=== PATIENT | female | born 1960 | race Caucasian/White ===

== ENCOUNTER 2022-03-25 11:10 | Outpatient (REF) | payer MEDICARE, OTHER, SELFPAY ==
[2022-03-25 12:13] LABS: Estimated Average Glucose 298 mg/dL
[2022-03-25 12:39] LABS: Anion Gap 16 (12-20); Blood Urea Nitrogen 33 mg/dL (9-16); Calcium 10.3 mg/dL (8.4-10.2); Carbon Dioxide 24 mmol/L (22-29); Chloride 101 mmol/L (96-108); Estimated Glomerular Filt Rate 27; Glucose Random 184 mg/dL (60-115); Potassium 4.1 mmol/L (3.3-5.1); Sodium 137 mmol/L (135-145)
== END 2022-03-25 11:11 | disposition home or self-care (01) ==
LOC: HO.LAB 11:10
PROVIDERS: PCP Internal Medicine; Visit Provider Psychiatry & Neurology Neurology
DX: G43.709 Chronic migraine without aura, not intractable, without status migrainosus (principal); E11.9 Type 2 diabetes mellitus without complications
CPT/HCPCS: 36415; 80048; 83036

== ENCOUNTER 2025-01-31 09:16 | Outpatient (AMB) | payer MEDICARE, OTHER, SELFPAY ==
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
--- OUTSIDE RECORDS SUMMARY | 2025-01-31 10:06 | XMS_ITS | Encounter Summary ---
Author Organization [facility] Address [address] [place] [address] Care Team Providers Care Insole Doubler Name Role Phone Magnolia Dodd MD Primary Care Provider [phone] Mariajose Reza MD Primary Care Provider [phone] Mariajose Reza MD Primary Care Provider [phone] Mariajose Reza MD Unavailable [phone] Magnolia Dodd MD Unavailable Xochitl Paredes MD Primary Care Provider [phone] Xochitl Paredes MD Unavailable [phone] Sascha Escobedo MD Unavailable [phone] Cipriano Fofana MD Primary Care Provider + [phone] Quan Flores MD Unavailable [phone] Sohan Goncalves MD Unavailable [phone] Andrew Wang MD Unavailable [phone] Encounter Details Date Type Department Care Team (Late st Contact Info) Description 12/20/2020 Scanned Document [facility] [place] [address] [facility] [address] [place] [phone] Karen Millard MD [address] [place] [address] Social History Tobacco Use Types Packs/Day Years Used Date Smoking Tobacco: Never Assessed Comments Unknown Sex and Gender Information Value Date Recorded Sex Assigned at Female 06/04/2022 2:33 PM EST Legal Sex Female 1:45 PM EDT Gender Identity Female 06/04/2022 2:33 PM EST Sexual Orientation Heterosexual (straight) 06/04 2:33 PM EST documented as of this encounter Plan of Treatment Upcoming Encounters Date Type Department Care Team (Late st Contact Info) Description 02/10/2025 9:15 AM EDT Office Visit [facility] Department of Cardiology [address] [address] Sohan Goncalves MD [address] [address] 03/24/2025 12:00 PM EST Office Visit [facility] Department of Internal Medicine & Nephrology [place] 1260 [facility] [address] [place] [phone] Quan Flores MD 85 [facility] [address] [place] [address] 07/24/2025 10:00 AM EDT Office Visit [facility] DEPARTMENT OF INTERNAL MEDICINE [address] Dr. Cipriano Fofana [address] [phone] Daiana Tello, STEPHANIE [address] [address] 11/24/2025 9:30 AM EDT Office Visit [facility]rology [place] [address] [place] [phone] Sascha Escobedo MD 85 [facility] [address] [place] [address] 01/22/2026 10:00 AM EDT Office Visit [facility] DEPARTMENT OF INTERNAL MEDICINE [facility] Dr. Cipriano Fofana 1210 [facility] [address] [place] [address] Mouna Ortega, STEPHANIE 1210 [facility] [address] [place] [address] documented as of this encounter Procedures Procedure Name Priority Date/Time Associated Diagnosis Comments MRI PELVIS W W/O CONTRAST Routine 12/20/2020 documented in this encounter Results * MRI Pelvis w w/o contrast (12/20/2020) Anatomical Region Laterality Modality Pelvis Magnetic Resonan ce us Karen Millard MD IMG MRI ORDERABLES Final Resul t documented in this encounter Visit Diagnoses Not on filedocumented in this encounter Care Teams Insole Doubler Relationship Specialty Start Date End Date Magnolia Dodd MD [address] [place] [address] PCP - General 12/27/20 02/24/22 Mariajose Reza MD [address] [place] [address] PCP - General Internal Medicine 02/25/22 05/11/23 Mariajose Reza MD [address] [place] [address] PCP - General 12/26/20 Mariajose Reza MD [address] [place] [address] PCP - [facility] Medicare Patients 05/21/22 09/17/22 Magnolia Dodd MD [address] [place], [place] [id number] PCP - [facility] Medicare Patients 02/18/23 05/20/23 Xochitl Paredes MD 1 [facility] [address] [place] [address] PCP - General Internal Medicine 06/11/23 06/26/24 Xochitl Paredes MD 1 [facility] [address] [place] [address] PCP - [facility] Medicare Patients 07/20/23 Cipriano Fofana MD 1210 [facility] 107 [place] [address] PCP - General Internal Medicine 06/27/24 Sascha Escobedo MD 85 [facility] [address] [place] [address] Physician Urology 12/11/23 Quan Flores MD 85 [facility] [address] [place] [address] Nephrology 01/16/25 Sohan Goncalves MD 1260 [facility] [address] [place] [address] Cardiovascular Disease 01/16/25 Andrew Wang MD 146 [facility] [address] [place] [address] Otolaryngology 01/16/25 documented as of this encounter
--- OUTSIDE RECORDS SUMMARY | 2025-01-31 10:06 | XMS_ITS | Encounter Summary ---
Author Organization [facility] Address [address] [place] [address] Care Team Providers Care Clinical Molecular Geneticist Name Role Phone Xochitl Paredes MD Primary Care Provider [phone] Xochitl Paredes MD Unavailable [phone] Sascha Escobedo MD Unavailable [phone] Cipriano Fofana MD Primary Care Provider + [phone] PostQuan MD Unavailable [phone] Sohan Goncalves MD Unavailable [phone] Andrew Wang MD Unavailable [phone] Encounter Details Date Type Department Care Team (Late st Contact Info) Description 02/08/2024 Telephone [facility] Department of Internal Medicine & Nephrology [place] [address] [place] [address] [address] [place] [address] Quan Flores MD [address] [place] [place] [address] Social History Tobacco Use Types Packs/Day Years Used Date Smoking Tobacco: Former Cigarettes Smokeless Tobacco: Never Comments:quit approx 1979 Alcohol Use Standard Drinks/Week Comments Not Currently 0 (1 standard drink = 0.6 oz pur e alcohol) AUDIT-C Answer Date Recorded Q1: How often do you have a drink containing alcohol? Never 12/23/2022 Q2: How many drinks containi ng alcohol do you have on a typical day when you are drinking? Patient does not drink 09/05/202 3 Q3: How often do you have si x or more drinks on one occasion? Never 12/23/2022 Comments No Sex and Gender Information Value Date Recorded Sex Assigned at Female 06/04/2022 2:33 PM EST Legal Sex Female 1:45 PM EDT Gender Identity Female 06/04/2022 2:33 PM EST Sexual Orientation Heterosexual (straight) 06/04 2:33 PM EST documented as of this encounter Miscellaneous Notes * Telephone Encounter - Mouna Guerra - 02/08/2024 3:16 PM EDT Pt moved to 12pm. * Telephone Encounter - Monua Guerra - 02/08/2024 3:16 PM EDT ----- Message from Yasmeen Khoury MA sent at 02/04/2024 4:11 PM EDT ----- ----- Message ----- From: Quan Flores MD Sent: 02/04/2024 3:40 PM EDT To: Str Nephrology Clinical Staff She has been a 1045 scheduled appointment coming up in a few weeks. I like to move her out of the 1045 spot to come at 12. Thank you I know I have another patient there that time but I will spend theextra time after that to make sure that we see everybody documented in this encounter Plan of Treatment Upcoming Encounters Date Type Department Care Team (Late st Contact Info) Description 02/10/2025 9:15 AM EDT Office Visit [facility] Department of Cardiology [address] [phone] Sohan Goncalves MD [address] [address] 03/24/2025 12:00 PM EST Office Visit [facility] Department of Internal Medicine & Nephrology [place] [address] [address] [facility] [address] [place] [address] Quan Flores MD 85 [facility] [address] [place] [address] 07/24/2025 10:00 AM EDT Office Visit [facility] DEPARTMENT OF INTERNAL MEDICINE [address] [address] Cipriano Fofana [address] [phone] Daiana Tello, TRAVELING PASSENGER AGENT 1210 [facility] 107 [place] [address] 11/24/2025 9:30 AM EDT Office Visit [facility] [address] [address] Sascha Escobedo MD [address] [address] 01/22/2026 10:00 AM EDT Office Visit [facility] DEPARTMENT OF INTERNAL MEDICINE [address] Dr[address] Cipriano Fofana [address] [phone] Mouna Ortega, TRAVELING PASSENGER AGENT [address] [address] documented as of this encounter Visit Diagnoses Not on filedocumented in this encounter Care Teams Clinical Molecular Geneticist Relationship Specialty Start Date End Date Xochitl Paredes MD [address] [address] PCP - General Internal Medicine 06/11/23 06/26/24 Xochitl Paredes MD [address] [address] PCP - [facility] Medicare Patients 07/20/23 Cipriano Fofana MD 1210 [facility] [address] [place] [address] PCP - General Internal Medicine 06/27/24 Sascha Escobedo MD 85 [facility] [address] [place] [address] Physician Urology 12/11/23 Quan Flores MD 85 [facility] [address] [place] [address] Nephrology 01/16/25 oShan Goncalves MD 1260 [facility] 106 [place] [address] Cardiovascular Disease 01/16/25 Andrew Wang MD [address] [facility] [address] [place] [address] Otolaryngology 01/16/25 documented as of this encounter
--- OUTSIDE RECORDS SUMMARY | 2025-01-31 10:06 | XMS_ITS | Encounter Summary ---
Author Organization [facility] Address [address] [place] [address] Care Team Providers Care Trash Hauler Name Role Phone Magnolia Dodd MD Primary Care Provider [phone] Mariajose Reza MD Primary Care Provider [phone] Mariajose Reza MD Unavailable [phone] Magnolia Dodd MD Unavailable Xochitl Paredes MD Primary Care Provider [phone] Xochitl Paredes MD Unavailable [phone] Sascha Escobedo MD Unavailable [phone] Cipriano Fofana MD Primary Care Provider + [phone] PostQuan MD Unavailable [phone] Sohan Goncalves MD Unavailable [phone] Andrew Wang MD Unavailable [phone] Reason for Visit * Reason Comments Medication Refill Encounter Details Date Type Department Care Team (Late st Contact Info) Description 01/27/2021 Refill [facility] 85 [facility] [address] [place] [phone] Candelario Orr MD 85 [facility] [address] [place], [place] [phone] Essential (primary) hypertension Social History Tobacco Use Types Packs/Day Years Used Date Smoking Tobacco: Never Assessed Comments Unknown Sex and Gender Information Value Date Recorded Sex Assigned at Female 06/04/2022 2:33 PM EST Legal Sex Female 1:45 PM EDT Gender Identity Female 06/04/2022 2:33 PM EST Sexual Orientation Heterosexual (straight) 06/04 2:33 PM EST COVID-19 Exposure Response Date Recorded In the last month, have you been in contact with someone who was confirmed or suspected to have Coronavirus / COVID-19? No / Unsure 12/28/2020 10:44 AM EDT documented as of this encounter Plan of Treatment Upcoming Encounters Date Type Department Care Team (Late st Contact Info) Description 02/10/2025 9:15 AM EDT Office Visit [facility] Department of Cardiology [address] [address] Sohan Goncalves MD [address] [address] 03/24/2025 12:00 PM EST Office Visit [facility] Department of Internal Medicine & Nephrology [place] 1260 [facility] [address] [place] [address] Quan Flores MD 85 [facility] [address] [place] [address] 07/24/2025 10:00 AM EDT Office Visit [facility] DEPARTMENT OF INTERNAL MEDICINE [place] [address] Cipriano Fofana [address] [phone] Daiana Tello APRN 1210 [facility] 107 [place] [address] 11/24/2025 9:30 AM EDT Office Visit [facility] Urology [place] [address] [place] [phone] Sascha Escobedo MD [address] [address] 01/22/2026 10:00 AM EDT Office Visit [facility] DEPARTMENT OF INTERNAL MEDICINE [place] Dr[facility] Cipriano Fofana 1210 [facility] [address] [place] [phone] Mouna Ortega, MANUFACTURING ENGINEERING TECHNICIAN 1210 [facility] [address] [place] [address] documented as of this encounter Visit Diagnoses Diagnosis Essential (primary) hypertension Unspecified essential hypertension documented in this encounter Care Teams Trash Hauler Relationship Specialty Start Date End Date Magnolia Dodd MD [address] [place], [place] [phone] PCP - General 12/27/20 02/24/22 Mariajose Reza MD [address] [place] [address] PCP - General Internal Medicine 02/25/22 05/11/23 Mariajose Reza MD [address] [place] [address] PCP - [facility] Medicare Patients 05/21/22 09/17/22 Magnolia Dodd MD [address] [place] [address] PCP - [facility] Medicare Patients 02/18/23 05/20/23 Xochitl Paredes MD [address] [place] [address] PCP - General Internal Medicine 06/11/23 06/26/24 Xochitl Paredes MD 1 [facility] 200 [place] [address] PCP - [facility] Medicare Patients 07/20/23 Cipriano Fofana MD 1210 [facility] [address] [place] [address] PCP - General Internal Medicine 06/27/24 Sascha Escobedo MD 85 [facility] [address] [place] [address] Physician Urology 12/11/23 Quan Flores MD 85 [facility] [address] [place] [address] Nephrology 01/16/25 Sohan Goncalves MD 1260 [facility] [address] [place] [address] Cardiovascular Disease 01/16/25 Andrew Wang MD [address] [facility] [address] [place] [address] Otolaryngology 01/16/25 documented as of this encounter
--- OUTSIDE RECORDS SUMMARY | 2025-01-31 10:06 | XMS_ITS ---
Author Name [facility] Organization Unknown Results Test Name/Text Value Interpretation Date Range Source Creat SerPl-mCnc 1.59 mg/dL Above high normal 11/19/2024 0.5 - 1.05 [facility] eGFRcr SerPlBld CKD-EPI 2020 36.0 mL/min/1.73m2 Below low normal 11/19/2024 - [facility] History of Medication Use Medication Directions Dispensed Refills Start Date End Date Stat semaglutide (Ozempic, 0.25 or 0.5 MG/DOSE,) (0.25 or 0.5 mg/dose pen) prefilled pen injection INJECT 0.5 MG UNDER THE SKIN ONCE A WEEK. 01/02/2025 active traZODone (DESYREL) 50 MG tablet Take 2 tablets (100 mg total) by mouth nightly as needed for sleep. 07/18/2024 active doxazosin (CARDURA) 2 MG tablet Take 1 tablet (2 mg total) by mouth daily. 05/03/2024 active doxazosin (CARDURA) 1 MG tablet Take 1 tablet (1 mg total) by mouth nightly. 03/11/2024 5 aborted busPIRone (BUSPAR) 5 MG tablet Take 1 tablet (5 mg total) by mouth 2 (two) times a day. 03/11/2024 active OMEprazole (PriLOSEC) 40 MG capsule Take 1 capsule (40 mg total) by mouth every morning before breakfast. 02/23/2024 active cloNIDine (CATAPRES) 0.2 MG tablet Take 1 tablet (0.2 mg total) by mouth 2 (two) times a day. 01/15/2024 active semaglutide (OZEMPIC) (1 mg/dose pen) prefilled pen injection Inject 1 mg under the skin once a week. 01/11/2024 active fluticasone-salmeterol (WIXELA INHUB) 250-50 mcg/act inhaler INHALE 1 PUFF BY MOUTH EVERY MORNING 11/16/2023 active semaglutide (OZEMPIC) (0.25 or 0.5 mg/dose pen) prefilled pen injection Inject 0.5 mg under the skin once a week. 11/13/2023 active cloNIDine (CATAPRES) 0.1 MG tablet Take 1 tablet (0.1 mg total) by mouth 2 (two) times a day. 10/15/2023 active semaglutide (OZEMPIC) (0.25 or 0.5 mg/dose pen) prefilled pen injection Inject 0.25 mg under the skin once a week. 10/02/2023 active doxazosin (CARDURA) 4 MG tablet Take 1 tablet (4 mg total) by mouth nightly. 08/19/2023 active insulin lispro (HumaLOG KWIKPEN) 100 UNIT/ML prefilled pen injection Inject 5 Units under the skin 3 (three) times a day before meals. 08/07/2023 active amitriptyline (ELAVIL) 10 MG tablet TAKE 1 TABLET BY MOUTH NIGHTLY NEEDED FOR SLEEP 06/11/2023 active tirzepatide (MOUNJARO) 2.5 mg/0.5 mL pen-injector Inject 1 pen(s) (2.5 mg total) under the skin once a week. 06/11/2023 active dapagliflozin (FARXIGA) 5 mg tablet Take 1 tablet (5 mg total) by mouth every morning. 02/19/2023 active OMEprazole (PriLOSEC) 20 MG capsule Take 1 capsule (20 mg total) by mouth daily. 10/30/2022 active Wixela Inhub 250-50 MCG/ACT diskus inhaler INHALE 1 PUFF TWICE A DAY 10/30/2022 active fluticasone-salmeterol (ADVAIR) 250-50 mcg/inh diskus inhaler Inhale 1 puff 2 (two) times a day. 10/07/2022 active clobetasol (TEMOVATE) 0.05 % ointment APPLY TOPICALLY 2 (TWO) TIMES A DAY. FOR A MAXIMUM OF 2 WEEKS. 09/19/2022 4 active hydrocortisone (HYTONE) 2.5 % ointment APPLY TOPICALLY 3 TIMES A WEEK. 09/19/2022 4 active Lantus SoloStar 100 UNIT/ML prefilled pen injection INJECT 15 UNIT DAILY IN EVENING. TITRATE NEEDED FOR BLOOD SUGAR CONTROL WITH DR. SANTIAGO 08/25/2022 active valsartan (DIOVAN) 320 MG tablet Take 1 tablet (320 mg total) by mouth every morning. 07/24/2022 3 active escitalopram (LEXAPRO) 10 MG tablet TAKE 1 TABLET (10 MG TOTAL) BY MOUTH EVERY MORNING. 07/08/2022 active hydroCHLOROthiazide (HYDRODIURIL) 25 MG tablet TAKE 1 TABLET BY MOUTH EVERY DAY 07/08/2022 active OMEprazole (PriLOSEC) 20 MG capsule TAKE 1 CAPSULE BY MOUTH EVERY DAY 06/19/2022 active Alcohol Swabs (Alcohol Wipes) 70 % Pads use to give insulin and check blood sugar 03/04/2022 active metFORMIN (GLUCOPHAGE) 500 MG tablet Take 1 tablet (500 mg total) by mouth 2 (two) times a day. 02/26/2022 3 active Insulin Pen Needle (BD Pen Needle Lexie 2nd Gen) 32G X 4 MM Misc Use 4 time a day to inject insulins under skin 02/26/2022 active metFORMIN (GLUCOPHAGE) 500 MG tablet Take 1 tablet by mouth 3 (three) times a day with meals. 02/26/2022 active docusate sodium (COLACE) 100 MG capsule Take 1 capsule (100 mg total) by mouth 2 (two) times a day as needed for constipation. 06/24/2021 active gabapentin (NEURONTIN) 300 MG capsule Take 1 capsule (300 mg total) by mouth every 8 (eight) hours around the clock. 06/24/2021 active oxyCODONE (ROXICODONE) 5 MG immediate release tablet Take 1 tablet (5 mg total) by mouth every 4 (four) hours as needed for severe pain. Max Daily Amount: 30 mg 06/24/2021 active Advair Diskus 250-50 MCG/DOSE diskus inhaler Inhale 1 puff 2 (two) times a day. 05/06/2021 active Emgality 120 MG/ML injection Inject 120 mg under the skin every 28 days (4 weeks). 03/27/2021 active amitriptyline (ELAVIL) 50 MG tablet Take 50 mg by mouth nightly as needed. 03/26/2021 active losartan (COZAAR) 100 MG tablet Take 100 mg by mouth every morning. 01/28/2021 active ipratropium (ATROVENT) 0.06 % nasal spray 1 spray into each nostril every morning. 01/24/2021 active acetaminophen (TYLENOL) 500 MG tablet Take 500 mg by mouth 4 times daily (every 6 hours) as needed for mild pain. active propranolol (INDERAL LA) 160 MG SR capsule Take by mouth with afternnoon snack at 2pm. active zolpidem (AMBIEN) 10 MG tablet Take 1 tablet (10 mg total) by mouth nightly as needed for sleep. active Allergies Allergen Reaction Severity Comment Documented Date Source Statu s DAPAGLIFLOZIN SWELLING 06/11/2023 [facility] active OXYCODONE GI INTOLERANCE/N AUSEA/VOMITIN G 06/19/2022 [facility] active SITAGLIPTIN SWELLING 06/17/2021 [facility] active LATEX UNKNOWN/PATIE NT AND FAMILY UNABLE TO DEFINE Added based on information entered during case entry, please review and add reactions, type, and severity as needed 03/21/2021 [facility] active SULFA ANTIBIOTICS UNKNOWN/PATIE NT AND FAMILY UNABLE TO DEFINE 02/06/2021 [facility] active AMLODIPINE SWELLING [facility] ASPIRIN UNKNOWN/PATIE NT AND FAMILY UNABLE TO DEFINE [facility] AZITHROMYCIN UNKNOWN/PATIE NT AND FAMILY UNABLE TO DEFINE [facility] BACITRACIN UNKNOWN/PATIE NT AND FAMILY UNABLE TO DEFINE [facility] CLINDAMYCIN UNKNOWN/PATIE NT AND FAMILY UNABLE TO DEFINE [facility] DILTIAZEM UNKNOWN/PATIE NT AND FAMILY UNABLE TO DEFINE [facility] DOXYCYCLINE UNKNOWN/PATIE NT AND FAMILY UNABLE TO DEFINE [facility] NITROFURANTOIN UNKNOWN/PATIE NT AND FAMILY UNABLE TO DEFINE [facility] NSAIDS UNKNOWN/PATIE NT AND FAMILY UNABLE TO DEFINE [facility] PENICILLINS UNKNOWN/PATIE NT AND FAMILY UNABLE TO DEFINE [facility] Problems Problem Status Onset Date Problem Type Date of Resolution Source Hepatic steatosis active 2022-09-29 ProblemAct [facility] Vaginal atrophy active 2022-09-29 ProblemAct [facility] Obstructive sleep apnea, adult active 2022-09-29 ProblemAct [facility] Menopausal symptoms active 2022-09-29 ProblemAct [facility] Generalized anxiety disorder active 2022-09-29 ProblemAct [facility] Elevated uric acid in blood active 2024-01-11 ProblemAct [facility] Benign hypertension with chronic kidney disease, stage IV active 2024-07-15 ProblemAct [facility] Morbid obesity with body mass index (BMI) of 45.0 to 49.9 in adult active 2022-09-29 ProblemAct [facility] TBI (traumatic brain injury) active 2022-09-29 ProblemAct [facility] Type 2 diabetes mellitus with obesity active 2022-09-29 ProblemAct [facility] Irritable bowel syndrome active 2022-09-29 ProblemAct [facility] Complex renal cyst active 2023-11-20 ProblemAct [facility] Moderate persistent asthma without complication active 2022-09-29 ProblemAct [facility] GERD without esophagitis active 2022-09-29 ProblemAct [facility] Secondary hyperparathyroidism of renal origin active 2023-11-13 ProblemAct [facility] Lichen sclerosus et atrophicus of the vulva active EncounterDiagnosisAct [facility] Hypertension active ProblemAct [facility] Immunizations Vaccine Date Source Lot Number Status RSV, Recombinant, Protein Joshi bunit RSV Prefusion F (AREXVY), Adjuvant Recon 0.5 mL PF 09/10/2023 [facility] H [id number] completed RSV, Recombinant, Protein Joshi bunit RSV Prefusion F (AREXVY), Adjuvant Recon 0.5 mL PF 09/10/2023 [facility] H [id number] completed [facility]10[id number] Td[facility] 09/10/2023 [facility] [id number] completed Zoster Vaccine Recombinant (Shingrix) 02/10/2023 [facility] [id number] completed Zoster Vaccine Recombinant (Shingrix) 02/10/2023 [facility] [id number] completed Zoster Vaccine Recombinant (Shingrix) 11/10/2022 [facility] [id number] completed Zoster Vaccine Recombinant (Shingrix) 11/10/2022 [facility] [id number] completed Pneumococcal Conjugate 20-Valent 10/07/2022 [facility] GN1 898 completed Pneumococcal Conjugate 20-Valent 10/07/2022 [facility] GN1 898 completed Covid-19 mRNA Primary Series Vaccine - Moderna 0.5 mL Full Dose 08/15/2020 [facility] completed Covid-19 mRNA Primary Series Vaccine - Moderna 0.5 mL Full Dose 08/15/2020 [facility] completed Covid-19 mRNA Primary Series Vaccine - Moderna 0.5 mL Full Dose 07/24/2020 [facility] Covid-19 mRNA Primary Series Vaccine - Moderna 0.5 mL Full Dose 07/24/2020 [facility] completed Encounters Encounter Type Encounter Reason Primary Diagnosis Location Date Ambulatory Encounter for general adult medical examination without abnormal findings Encounter for general adult medical examination without abnormal findings [facility] 01/16/2025 Ambulatory [facility] 12/02/2024 Ambulatory [facility] 12/02/2024 Ambulatory Cyst of kidney, acquired Cyst of kidney, acquired [facility] 11/18/2024 Ambulatory [facility] 09/01/2024 Ambulatory [facility] 07/29/2024 Ambulatory Type 2 diabetes mellitus with diabetic chronic kidney disease Type 2 diabetes mellitus with diabetic chronic kidney disease [facility] 07/18/2024 Ambulatory Type 2 diabetes mellitus with other specified complication Type 2 diabetes mellitus with other specified complication [facility] 07/15/2024 Ambulatory Morbid (severe) obesity due to excess calories Morbid (severe) obesity due to excess calories [facility] 05/03/2024 Ambulatory [facility] 03/11/2024 Ambulatory Encounter for general adult medical examination without abnormal findings Encounter for general adult medical examination without abnormal findings [facility] 03/07/2024 Ambulatory [facility] 02/23/2024 Ambulatory [facility] 01/15/2024 Ambulatory [facility] 01/15/2024 Ambulatory Type 2 diabetes mellitus with other specified complication Type 2 diabetes mellitus with other specified complication [facility] 01/11/2024 Ambulatory [facility] 12/11/2023 Ambulatory Cyst of kidney, acquired Cyst of kidney, acquired [facility] 11/20/2023 Ambulatory Gynecologic Exam Gynecologic Exam [facility] 11/13/2023 Ambulatory [facility]. 11/13/2023 Ambulatory Follow-up Follow-up [facility] 11/13/2023 Ambulatory Encounter for general adult medical examination without abnormal findings Encounter for general adult medical examination without abnormal findings [facility] 10/15/2023 Ambulatory Follow-up Follow-up [facility] 10/02/2023 Ambulatory [facility] 08/07/2023 Ambulatory Type 2 diabetes mellitus with other specified complication Type 2 diabetes mellitus with other specified complication [facility] 07/30/2023 Ambulatory Type 2 diabetes mellitus with diabetic chronic kidney disease Type 2 diabetes mellitus with diabetic chronic kidney disease [facility] 06/11/2023 Ambulatory Type 2 diabetes mellitus with hyperglycemia Type 2 diabetes mellitus with hyperglycemia [facility] 02/19/2023 Ambulatory Encounter for screening for malignant neoplasm of colon Encounter for screening for malignant neoplasm of colon [facility] 12/26/2022 Ambulatory Cyst of kidney, acquired [facility] 11/14/2022 Ambulatory Dizziness and giddiness [facility] 11/06/2022 Ambulatory [facility] 10/07/2022 Ambulatory Hypertensive chr onic kidney disease with stage 1 through stage 4 chronic kidney disease, or unspecified chronic kidney disease [facility] 10/07/2022 Ambulatory Pruritus vulvae [facility] 09/16/2022 Emergency Hyperglycemia, unspecified [facility] 02/25/2022 Ambulatory Cyst of kidney, acquired [facility] 08/16/2021 Ambulatory Diverticulitis o f intestine, part unspecified, without perforation or abscess without bleeding [facility] 07/04/2021 Inpatient 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 [facility] 06/20/2021 Ambulatory Contact with and (suspected) exposure to covid-19 [facility] 06/13/2021 Ambulatory [facility] 05/15/2021 Ambulatory Cyst of kidney, acquired [facility] 05/14/2021 Ambulatory Consult [facility] 05/08/2021 Ambulatory Encounter for screening for malignant neoplasm of colon [facility] 04/05/2021 Ambulatory Diverticulitis o f intestine, part unspecified, without perforation or abscess without bleeding [facility] 02/06/2021 Care Team Organization Name Specialty Phone Email Start Date End Da te [facility] ADY DIAZ, Primary Care 07/19/2024 [facility] ADY DIAZ, Primary Care 06/22/2024 [facility] [phone] Primary Care 03/10/2024 09/06/2024 [facility] provided,No Primary Care 11/17/2023 02/18/2024 [facility] provided Primary Care 11/16/2023 Carley Felipe Primary Care 10/08/2023 025 Carley Felipe Primary Care 07/15/2023 [facility] Xochitl Santiago Primary Care 06/11/2023 [facility] 02/20/2023 [facility] 01/10/2023 024 [facility] Mariajose Reza Primary Care 09/16/2022 [facility] Zahra,Oosman Primary Care 02/26/2022 [facility] MineOSMAN ZAHRA Primary Care 02/06/2021 [facility] MARIAJOSE REZA Primary Care 02/06/2021 02/26/20
--- OUTSIDE RECORDS SUMMARY | 2025-01-31 10:06 | XMS_ITS | Encounter Summary ---
Author Organization [facility] Ed Address [address] [place] [address] Care Team Providers Care Costume Rental Clerk Name Role Phone Magnolia Dodd MD Primary Care Provider [phone] Mariajose Reza MD Primary Care Provider [phone] Mariajose Reza MD Primary Care Provider [phone] Mariajose Reza MD Unavailable [phone] Magnolia Dodd MD Unavailable Xochitl Paredes MD Primary Care Provider [phone] Xochitl Paredes MD Unavailable [phone] Sascha Escobedo MD Unavailable [phone] Cipriano Fofana MD Primary Care Provider + [phone] Quan Flores MD Unavailable [phone] Sohan Goncalves MD Unavailable [phone] Andrew Wang MD Unavailable [phone] Encounter Details Date Type Department Care Team (Late st Contact Info) Description 11/14/2020 Scanned Document [facility] Colorectal Surgery [place] [address] [facility] [address] [place] [phone] Karen Millard MD 3 [place] [address] Social History Tobacco Use Types Packs/Day Years [...] Description 02/10/2025 9:15 AM EDT Office Visit [facility] Department of Cardiology [address] [phone] Sohan Goncalves MD [address] [address] 03/24/2025 12:00 PM EST Office Visit [facility] Department of Internal Medicine & Nephrology [place] 1260 [facility] [address] [place] [phone] Quan Flores MD 85 [facility] [address] [place] [address] 07/24/2025 10:00 AM EDT Office Visit [facility] DEPARTMENT OF INTERNAL MEDICINE [place] [address] Cipriano Fofana [address] [phone] Daiana Tello, STEPHANIE [address] [address] 11/24/2025 9:30 AM EDT Office Visit [facility] Urology [place] [address] [place] [phone] Sascha Escobedo MD 85 [facility] [address] [place] [address] 01/22/2026 10:00 AM EDT Office Visit [facility] DEPARTMENT OF INTERNAL MEDICINE [place] Dr. Cipriano Fofana 1210 [facility] [address] [place] [address] Mouna Ortega, E M ASSEMBLER 1210 [facility] [address] [place] [address] documented as of this encounter Visit Diagnoses Not on filedocumented in this encounter Care Teams Costume Rental Clerk Relationship Specialty Start Date End Date Magnolia Dodd MD [address] [place] [address] PCP - General 12/27/20 02/24/22 Mariajose Reza MD [address] [place] [address] PCP - General Internal Medicine 02/25/22 05/11/23 Mariajose Reza MD [address] [place] [address] PCP - General 12/26/20 Mariajose Reza MD [address] [place] [address] PCP - [facility] Medicare Patients 05/21/22 09/17/22 Magnolia Dodd MD [address] [place] [address] PCP - [facility] Medicare Patients 02/18/23 05/20/23 Xochitl Paredes MD [address] [address] PCP - General Internal Medicine 06/11/23 06/26/24 oXchitl Paredes MD 1 [facility] 200 [place] [address] PCP - [facility] Medicare Patients 07/20/23 Cipriano Fofana MD 1210 [facility] [address] [place] [address] PCP - General Internal Medicine 06/27/24 Sascha Escobedo MD 85 [facility] [address] [place] [address] Physician Urology 12/11/23 Quan Flores MD 85 [facility] [address] [place] [address] Nephrology 01/16/25 Shoan Goncalves MD 1260 [facility] [address] [place] [address] Cardiovascular Disease 01/16/25 Andrew Wang MD 146 [facility] [address] [place] [address] Otolaryngology 01/16/25 documented as of this encounter
--- OUTSIDE RECORDS SUMMARY | 2025-01-31 10:06 | XMS_ITS | Encounter Summary ---
Author Organization [facility] Address [address] [place] [address] Care Team Providers Care Electronic Publications Specialist Name Role Phone Magnolia Dodd MD Primary Care Provider [phone] Mariajose Reza MD Primary Care Provider [phone] Mariajose Reza MD Primary Care Provider [phone] Mariajose Reza MD Unavailable [phone] Magnolia Dodd MD Unavailable Xochitl Paredes MD Primary Care Provider [phone] Xochitl Paredes MD Unavailable [phone] Sascha Escobedo MD Unavailable [phone] Cipriano Fofana MD Primary Care Provider + [phone] Quan Flores MD Unavailable [phone] Sohan Goncalves MD Unavailable [phone] Andrew Wang MD Unavailable [phone] Encounter Details Date Type Department Care Team (Late st Contact Info) Description 11/14/2020 Scanned Document [facility] Colorectal Surgery [place] [address] [facility] [address] [place] [phone] Karen Millard MD 3 [place] [address] Social History Tobacco Use Types Packs/Day Years [...] Description 02/10/2025 9:15 AM EDT Office Visit [facility] Department of Cardiology [address] [phone] Sohan Goncalves MD [address] [address] 03/24/2025 12:00 PM EST Office Visit [facility] Department of Internal Medicine & Nephrology [place] 1260 [facility] [address] [place] [phone] Quan Flores MD 85 [facility] [address] [place] [address] 07/24/2025 10:00 AM EDT Office Visit [facility] DEPARTMENT OF INTERNAL MEDICINE [place] Dr. Cipriano Fofana [address] [phone] Daiana Tello, STEPHANIE [address] [address] 11/24/2025 9:30 AM EDT Office Visit [facility] Urology [place] [address] [place] [phone] Sascha Escobedo MD 85 [facility] [address] [place] [address] 01/22/2026 10:00 AM EDT Office Visit [facility] DEPARTMENT OF INTERNAL MEDICINE [place] Dr. Cipriano Fofana 1210 [facility] [address] [place] [address] Mouna Ortega, INNER DIAMETER GRINDER TOOL 1210 [facility] [address] [place] [address] documented as of this encounter Procedures Procedure Name Priority Date/Time Associated Diagnosis Comments US PELVIS-COMPLETE Routine 11/14/2020 documented in this encounter Results * US Pelvis-Complete (11/14/2020) Anatomical Region Laterality Modality Pelvis Ultrasound us Karen Millard MD IMG US ORDERABLES Final Result documented in this encounter Visit Diagnoses Not on filedocumented in this encounter Care Teams Electronic Publications Specialist Relationship Specialty Start Date End Date Magnolia Dodd MD [address] [place] [address] PCP - General 12/27/20 02/24/22 Mariajose Reza MD [address] [place] [address] PCP - General Internal Medicine 02/25/22 05/11/23 Mariajose Reza MD [address] [place] [address] PCP - General 12/26/20 Mariajose Reza MD 3 [place] [address] PCP - [facility] Medicare Patients 05/21/22 09/17/22 Magnolia Dodd MD [address] [place], [place] [phone] PCP - [facility] Medicare Patients 02/18/23 05/20/23 Xochitl Paredes MD 1 [facility] 200 [place] [address] PCP - General Internal Medicine 06/11/23 06/26/24 Xochitl Paredes MD 1 [facility] [address] [place] [address] PCP - [facility] Medicare Patients 07/20/23 Cipriano Fofana MD 1210 [facility] [address] [place] [address] PCP - General Internal Medicine 06/27/24 Sascha Escobedo MD 85 [facility] [address] [place] [address] Physician Urology 12/11/23 Quan Flores MD 85 [facility] [address] [place] [address] Nephrology 01/16/25 Sohan Goncalves MD 1260 [facility] 106 [place] [address] Cardiovascular Disease 01/16/25 Andrew Wang MD 146 [facility] 204 [place] [address] Otolaryngology 01/16/25 documented as of this encounter
--- OUTSIDE RECORDS SUMMARY | 2025-01-31 10:06 | XMS_ITS | Encounter Summary ---
Author Organization [facility] Address [address] [place] [address] Care Team Providers Care Bottling Room Worker Name Role Phone Magnolia Dodd MD Primary Care Provider [phone] Mariajose Reza MD Primary Care Provider [phone] Mariajose Reza MD Primary Care Provider [phone] Mariajose Reza MD Unavailable [phone] Magnolia Dodd MD Unavailable Xochitl Paredes MD Primary Care Provider [phone] Xochitl Paredes MD Unavailable [phone] Sascha Escobedo MD Unavailable [phone] Cipriano Fofana MD Primary Care Provider + [phone] Quan Flores MD Unavailable [phone] Sohan Goncalves MD Unavailable [phone] Andrew Wang MD Unavailable [phone] Encounter Details Date Type Department Care Team (Late st Contact Info) Description 11/13/2020 Scanned Document [facility] Colorectal Surgery Isabel [address] [facility] [address] [place] [address] Karen Millard MD 3 [place] [address] Social History Tobacco Use Types Packs/Day Years [...] 9:15 AM EDT Office Visit [facility] Department of Cardiology [address] [address] Sohan Goncalves MD [address] [address] 03/24/2025 12:00 PM EST Office Visit [facility] Department of Internal Medicine & Nephrology [place] 1260 [facility] [address] [place] [phone] Quan Flores MD 85 [facility] 900 [place] [address] 07/24/2025 10:00 AM EDT Office Visit [facility] DEPARTMENT OF INTERNAL MEDICINE [place] Dr. Cipriano Fofana [address] [phone] Daiana Tello, STEPHANIE [address] [address] 11/24/2025 9:30 AM EDT Office Visit [facility] Urology [place]ofia [address] [place] [phone] Sascha Escobedo MD 85 [facility] 416 [place] [address] 01/22/2026 10:00 AM EDT Office Visit [facility] DEPARTMENT OF INTERNAL MEDICINE [place] Dr. Cipriano Fofana 1210 [facility] [address] [place] [phone] Mouna Ortega, REMEDIATION TECHNICIAN 1210 [facility] [address] [place] [address] documented as of this encounter Procedures Procedure Name Priority Date/Time Associated Diagnosis Comments PAP/HOIST WORKER CYTOLOGY Routine 11/13/2020 documented in this encounter Results * PAP/Radio Time Salesperson Cytology (11/13/2020) us Karen Millard MD PATHOLOGY/CYTOLOGY ORDERABLES Final Result documented in this encounter Visit Diagnoses Not on filedocumented in this encounter Care Teams Bottling Room Worker Relationship Specialty Start Date End Date Magnolia Dodd MD [address] [place], [place] [id number] PCP - General 12/27/20 02/24/22 Mariajose Reza MD [address] [place] [address] PCP - General Internal Medicine 02/25/22 05/11/23 Mariajose Reza MD 3 [place] [address] PCP - General 12/26/20 Mariajose Reza MD [address] [place] [address] PCP - [facility] Medicare Patients 05/21/22 09/17/22 Magnolia Dodd MD [address] [place] [address] PCP - [facility] Medicare Patients 02/18/23 05/20/23 Xochitl Paredes MD 1 [facility] 200 [place] [address] PCP - General Internal Medicine 06/11/23 06/26/24 Xochitl Paredes MD 1 [facility] 200 [place] [address] PCP - [facility] Medicare Patients 07/20/23 Cipriano Fofana MD 1210 [facility] 107 [place] [address] PCP - General Internal Medicine 06/27/24 Sascha Escobedo MD 85 [facility] 416 [place] [address] Physician Urology 12/11/23 Quan Flores MD 85 [facility] [address] [place] [phone] Nephrology 01/16/25 Sohan Goncalves MD 1260 [facility] 106 [place] [address] Cardiovascular Disease 01/16/25 Andrew Wang MD [address] [facility] [address] [place] [address] Otolaryngology 01/16/25 documented as of this encounter
--- OUTSIDE RECORDS SUMMARY | 2025-01-31 10:06 | XMS_ITS | Encounter Summary ---
Author Organization [facility] Address [address] [place] [address] Care Team Providers Care Product Coordinator Name Role Phone Xochitl Paredes MD Unavailable [phone] Sascha Escobedo MD Unavailable [phone] Cipriano Fofana MD Primary Care Provider [phone] Post, Quan Grace MD Unavailable [phone] Sohan Goncalves MD Unavailable [phone] Andrew Wang MD Unavailable [phone] Encounter Details Date Type Department Care Team (Late st Contact Info) Description 01/27/2025 Orders Only [facility] [address] [place] [address] Referred, MD Monica [address] [place] [address] Social History Tobacco Use Types Packs/Day Years Used Date Smoking Tobacco: Former Cigarettes Smokeless Tobacco: Never Comments:quit approx 1979 Couple cig a day x ~ <5 years Alcohol Use Standard Drinks/Week Comments Not Currently 0 (1 standard drink = 0.6 oz pur e alcohol) AUDIT-C Answer Date Recorded Q1: How often do you have a drink containing alcohol? Never 12/23/2022 Q2: How many drinks containi ng alcohol do you have on a typical day when you are drinking? Patient does not drink Q3: How often do you have si x or more drinks on one occasion? Never 12/23/2022 PHQ-2 Answer Date Recorded PHQ-2 Total Score 0 01/16/2025 Comments No Sex and Gender Information Value Date Recorded Sex Assigned at Female 06/04/2022 2:33 PM EST Legal Sex Female 1:45 PM EDT Gender Identity Female 06/04/2022 2:33 PM EST Sexual Orientation Heterosexual (straight) 06/04 2:33 PM EST Occupation Industry Job Start Date Job End Date disabled Not on file Not on file Not on file documented as of this encounter Plan of Treatment Upcoming Encounters Date Type Department Care Team (Late st Contact Info) Description 02/10/2025 9:15 AM EDT Office Visit [facility] Department of Cardiology [address] [address] Sohan Goncalves MD [address] [place] [address] 03/24/2025 12:00 PM EST Office Visit [facility] Department of Internal Medicine & Nephrology [place] 1260 [facility] [address] [place] [address] Quan Flores MD 85 [facility] 900 [place], [place] [phone] 07/24/2025 10:00 AM EDT Office Visit [facility] DEPARTMENT OF INTERNAL MEDICINE [employer] Dr. Cipriano Fofana [address] [phone] Daiana Tello APRN 1210 [facility] 107 [place] [address] 11/24/2025 9:30 AM EDT Office Visit [facility] Urology Zofia [address] [place] [address] Sascha Escobedo MD 85 [facility] 416 [place] [address] 01/22/2026 10:00 AM EDT Office Visit [facility] DEPARTMENT OF INTERNAL MEDICINE [employer] Dr. Cipriano Fofana 1210 [facility] [address] [place] [address] Mouna Ortega, COMPENSATION AGENT 1210 [facility] [address] [place] [address] documented as of this encounter Procedures Procedure Name Priority Date/Time Associated Diagnosis Comments MG SCREENING DIGITAL BREAST SHAMIKA- BILATERAL Routine 01/27/2025 2:14 PM EDT documented in this encounter Results * MG SCREENING DIGITAL BREAST SHAMIKA- BILATERAL (01/27/2025 2:14 PM EDT) Anatomical Region Laterality Modality Other 01/27/2025 12:4 5 PM EDT 01/27/2025 12:45 PM EDT Narrative 01/31/2025 9:45 AM EDT HISTORY: Patient is 64 years old and is seen for screening. The patient has no personal history of ovarian cancer. The patient has no family history of breast cancer. FILMS COMPARED: The present examination has been compared to prior imaging studies dated 12/31/2021, 01/01/2023 and 01/18/2024. SHAMIKA STATEMENT: Computer-aided detection was utilized by the radiologist in the interpretation of this examination. 3D tomosynthesis digital mammographic images were obtained using standard projections. MAMMOGRAM FINDINGS: The breasts are almost entirely fatty. (ACR BIRADS density Category a) * No suspicious masses, calcifications or other abnormalities are seen in either breast. IMPRESSION: There is no mammographic evidence of malignancy. Routine follow-up mammogram in 1 year is recommended. The patient will receive a lay summary of the results of this breast imaging exam. Lay summaries for mammography examinations will also identify the patients personal breast tissue composition as required by state law. BIRADS Category 1: Negative Thank you for referring your patient to us, Meredith Kessler MD [phone] (Electronically Signed - 01/31/2025 09:45) Procedure Note Meredith Kessler MD - 01/31/2025 HISTORY: Patient is 64 years old and is seen for screening. The patient has no personal history of ovarian cancer. The patient has no family history of breast cancer. FILMS COMPARED: The present examination has been compared to prior imaging studies dated12/31/2021, 01/01/2023 and 01/18/2024. SHAMIKA STATEMENT: Computer-aided detection was utilized by the radiologist in theinterpretation of this examination. 3D tomosynthesis digital mammographic images were obtained using standardprojections. MAMMOGRAM FINDINGS: The breasts are almost entirely fatty. (ACR BIRADS density Category a) * No suspicious masses, calcifications or other abnormalities are seen ineither breast. IMPRESSION: There is no mammographic evidence of malignancy. Routine follow-up mammogram in 1 year is recommended. The patient will receive a lay summary of the results of this breastimaging exam. Lay summaries for mammography examinations will alsoidentify the patients personal breast tissue composition as required bystate law. BIRADS Category 1: Negative Thank you for referring your patient to us, Meredith Kessler MD [phone] (Electronically Signed - 01/31/2025 09:45) us Rad-Self Referred IMG LEGACY PROCEDURES Final Result documented in this encounter Visit Diagnoses Not on filedocumented in this encounter Care Teams Product Coordinator Relationship Specialty Start Date End Date Xochitl Paredes MD [address] [place] [address] PCP - [facility] Medicare Patients 07/20/23 Cipriano Fofana MD 1210 [facility] [address] [place] [address] PCP - General Internal Medicine 06/27/24 Sascha Escobedo MD [address] [place] [address] Physician Urology 12/11/23 Quan Flores MD 85 [facility] [address] [place] [address] Nephrology 01/16/25 Sohan Goncalves MD 1260 [facility] 106 [place] [address] Cardiovascular Disease 01/16/25 Andrew Wang MD [address] [place] [address] Otolaryngology 01/16/25 documented as of this encounter
--- OUTSIDE RECORDS SUMMARY | 2025-01-31 10:06 | XMS_ITS | Encounter Summary ---
Author Organization [facility] Address [address] [place] [address] Care Team Providers Care Chief Information Officer Name Role Phone Xochitl Pardees MD Primary Care Provider [phone] Xochitl Paredes MD Unavailable [phone] Sascha Escobedo MD Unavailable [phone] Cipriano Fofana MD Primary Care Provider [phone] PostQuan MD Unavailable [phone] Sohan Goncalves MD Unavailable [phone] Andrew Wang MD Unavailable [phone] Encounter Details Date Type Department Care Team (Late st Contact Info) Description 07/06/2023 Scanned Document [facility] Department of Family Medicine [place] 1 [facility] [address] [place] [address] Xochitl Paredes MD 1 [facility] [address] [place] [address] Social History Tobacco Use Types Packs/Day Years [...] Office Visit [facility] Department of Cardiology [address] [phone] Sohan Goncalves MD [address] [place] [address] 03/24/2025 12:00 PM EST Office Visit [facility] Department of Internal Medicine & Nephrology [place] 1260 [facility] [address] [place] [address] Quan Flores MD 85 [facility] 900 [place] [address] 07/24/2025 10:00 AM EDT Office Visit [facility] DEPARTMENT OF INTERNAL MEDICINE [place] Dr. Cipriano Fofana [address] [phone] Daiana Tello APRN [address] [address] 11/24/2025 9:30 AM EDT Office Visit [facility] Urology [place]ofia [address] [place] [phone] Sascha Escobedo MD 85 [facility] 416 [place] [address] 01/22/2026 10:00 AM EDT Office Visit [facility] DEPARTMENT OF INTERNAL MEDICINE [place] Dr. Cipriano Fofana 1210 [facility] [address] [place] [phone] Mouna Ortega, VOCAL MUSIC INSTRUCTOR 1210 [facility] [address] [place] [address] documented as of this encounter Visit Diagnoses Not on filedocumented in this encounter Care Teams Chief Information Officer Relationship Specialty Start Date End Date Xochitl Paredes MD 1 [facility] 200 [place] [address] PCP - General Internal Medicine 06/11/23 06/26/24 Xochitl Paredes MD 1 [facility] 200 [place], [place] [phone] PCP - [facility] Medicare Patients 07/20/23 Cipriano Fofana MD 1210 [facility] 107 [place] [address] PCP - General Internal Medicine 06/27/24 Sascha Escobedo MD 85 [facility] [address] [place] [address] Physician Urology 12/11/23 Quan Flores MD 85 [facility] 900 [place] [address] Nephrology 01/16/25 Sohan Goncalves MD 1260 [facility] [address] [place] [address] Cardiovascular Disease 01/16/25 Andrew Wang MD [address] [place] [address] Otolaryngology 01/16/25 documented as of this encounter
--- OUTSIDE RECORDS SUMMARY | 2025-01-31 10:06 | XMS_ITS | Clinical Summary ---
Author Organization [facility] Address [address] [place] [address] Care Team Providers Care Sas Sql Developer Name Role Phone Xochitl Paredes MD Unavailable [phone] Sascha Escobedo MD Unavailable [phone] Cipriano Fofana MD Primary Care Provider [phone] PostBang MD Unavailable [phone] Sohan Goncalves MD Unavailable [phone] Andrew Wang MD Unavailable [phone] Allergies Active Allergy Reactions Criticality Noted Date Comments Amlodipine Swelling Medium 06/17/2021 Aspirin Unknown/Patient and Family Unable to Define Medium 02/06/2021 Azithromycin Unknown/Patient and Family Unable to Define Medium 02/06/2021 Bacitracin Unknown/Patient and Family Unable to Define Medium 02/06/2021 Clindamycin Unknown/Patient and Family Unable to Define Medium 06/19/2022 Diltiazem Unknown/Patient and Family Unable to Define Medium 06/19/2022 Doxycycline Unknown/Patient and Family Unable to Define Medium 02/06/2021 Dapagliflozin Swelling Medium 06/11/2023 Sitagliptin Swelling Medium 06/17/2021 Latex Unknown/Patient and Family Unable to Define Medium 03/21/2021 Added based on information entered during case entry, please review and add reactions, type, and severity as needed Nitrofurantoin Unknown/Patient and Family Unable to Define Medium 06/19/2022 Nsaids Unknown/Patient and Family Unable to Define Medium 02/06/2021 Oxycodone Nausea Only,GI Intolerance/Nausea/Vo miting Low 06/19/2022 Penicillins Unknown/Patient and Family Unable to Define Medium 02/06/2021 Sulfa Antibiotics Unknown/Patient and Family Unable to Define Medium 02/06/2021 Medications ipratropium (ATROVENT) 0.06 % nasal spray 1 spray into each nostril every morning. 01/25/20 21 Active Continuous Blood Gluc Senior Network Engineer (FreeStyle Tato 2 [place]) DeviceIndicatio ns:Type 2 diabetes mellitus with stage 3b chronic kidney disease, with long-term current use of insulin (HCC),Diabetes mellitus type 2 in obese Use to check blood sugar 3-4 times daily. 1 each 3 07/06/19 24 Active busPIRone (BUSPAR) 5 MG tabletIndicatio ns:Traumatic brain injury with loss of consciousness, subsequent encounter Take 1 tablet (5 mg total) by mouth 2 (two) times a day. 180 tablet 3 07/19/19 25 026 Active doxazosin (CARDURA) 2 MG tabletIndicatio ns:Benign hypertension with chronic kidney disease, stage IV ([facility]) Take 1 tablet (2 mg total) by mouth daily. 90 tablet 3 07/19/19 25 026 Active fluticasone-gabby meterol (ADVAIR) 250-50 mcg/inh diskus inhalerIndicati ons:Asthma, unspecified asthma severity, unspecified whether complicated, unspecified whether persistent Inhale 1 puff 2 times a day. 180 each 1 07/19/19 25 Active hydrocortisone (HYTONE) 2.5 % ointmentIndicat ions:Lichen sclerosus et atrophicus of the vulva Apply topically 2 (two) times a day. 20 g 5 07/19/19 25 Active OMEprazole (PriLOSEC) 40 MG capsuleIndicati ons:Gastroesoph ageal reflux disease without esophagitis Take 1 capsule (40 mg total) by mouth every morning before breakfast. 90 capsule 1 07/19/19 25 Active traZODone (DESYREL) 50 MG tabletIndicatio ns:Type 2 diabetes mellitus with obesity Take 2 tablets (100 mg total) by mouth nightly as needed for sleep. 180 tablet 1 07/19/19 25 Active valsartan (DIOVAN) 320 MG tabletIndicatio ns:Benign hypertension with chronic kidney disease, stage IV (HCC),Stage 3b chronic kidney disease (HCC) Take 1 tablet (320 mg total) by mouth every morning. 90 tablet 3 10/15/19 25 Active clobetasol (TEMOVATE) 0.05 % ointmentIndicat ions:Lichen sclerosus et atrophicus of the vulva APPLY TOPICALLY 2 (TWO) TIMES A DAY. FOR A MAXIMUM OF 2 WEEKS. 30 g 3 01/03/20 25 Active semaglutide (Ozempic, 0.25 or 0.5 MG/DOSE,) (0.25 or 0.5 mg/dose pen) prefilled pen injectionIndica tions:Type 2 diabetes mellitus with obesity,Type 2 diabetes mellitus with stage 3b chronic kidney disease, with long-term current use of insulin ([facility]) Inject 0.5 mg under the skin once a week. 3 mL 3 01/17/20 25 Active Continuous Glucose Sensor (FreeStyle Tato 2 Sensor) MiscIndications :Type 2 diabetes mellitus with stage 3b chronic kidney disease, with long-term current use of insulin ([facility]),Type 2 diabetes mellitus in patient with obesity ([facility]) Use to check blood sugar 3-4 times daily 6 each 5 01/19/20 25 Active Continuous Glucose Sensor (FreeStyle Tato 2 Sensor) MiscIndications :Type 2 diabetes mellitus with stage 3b chronic kidney disease, with long-term current use of insulin ([facility]),Type 2 diabetes mellitus with obesity Use to check blood sugar 3-4 times daily 6 each 3 07/19/19 25 025 Discontinued(Re order) semaglutide (OZEMPIC) (0.25 or 0.5 mg/dose pen) prefilled pen injectionIndica tions:Type 2 diabetes mellitus with stage 3b chronic kidney disease, with long-term current use of insulin ([facility]),Type 2 diabetes mellitus with obesity Inject 0.5 mg under the skin once a week. 9 mL 1 07/19/19 25 025 Discontinued semaglutide (Ozempic, 0.25 or 0.5 MG/DOSE,) (0.25 or 0.5 mg/dose pen) prefilled pen injectionIndica tions:Type 2 diabetes mellitus with stage 3b chronic kidney disease, with long-term current use of insulin (HCC),Type 2 diabetes mellitus with obesity INJECT 0.5 MG UNDER THE SKIN ONCE A WEEK. 3 mL 1 01/03/20 25 025 Discontinued semaglutide (Ozempic, 0.25 or 0.5 MG/DOSE,) (0.25 or 0.5 mg/dose pen) prefilled pen injectionIndica tions:Type 2 diabetes mellitus with obesity,Type 2 diabetes mellitus with stage 3b chronic kidney disease, with long-term current use of insulin (HCC) Inject 0.25 mg under the skin once a week. 3 mL 1 01/17/20 25 025 Discontinued Active Problems Problem Noted Date Diagnosed Date Lichen sclerosus et atrophicus of the vulva 12/20 Benign hypertension with chronic kidney disease, stage IV 07/15/2024 Elevated uric acid in blood 01/11/2024 Complex renal cyst 11/20/2023 Overview (01/16/2025): 11/2024 Stable appearing of right renal cortical cyst with no new cysts present bilaterally. Secondary hyperparathyroidism of renal origin Moderate persistent asthma without complication 09/29/2022 09/29/2022 Type 2 diabetes mellitus with obesity 09/29/2022 09/29/2022 Generalized anxiety disorder 09/29/202203/2023 GERD without esophagitis 09/29/2022 023 Hepatic steatosis 09/29/2022 09/29/2022 Irritable bowel syndrome 09/29/2022 023 Menopausal symptoms 09/29/2022 09/29/2022 Morbid obesity with body mas s index (BMI) of 45.0 to 49.9 in adult 09/29/2022 09/29/2022 Assessment & Plan (07/29/2024 9:49 AM EDT): Weight loss is indicated. The patient is on semaglutide. Will see again in 6 months. Assessment & Plan (05/03/2024 9:44 AM EST): Weight loss is indicated. The patient is on semaglutide. Assessment & Plan (01/15/2024 10:34 AM EDT): Weight loss is indicated. Assessment & Plan (10/15/2023 1:36 PM EDT): Weight loss is indicated Assessment & Plan (11/06/2022 2:27 PM EDT): Weight loss would be helpful Obstructive sleep apnea, adult 09/29/2022 0 09/29/2022 Overview (01/16/2025): No cpap Assessment & Plan (07/29/2024 9:49 AM EDT): The patient is been intolerant of CPAP. Assessment & Plan (05/03/2024 9:44 AM EST): Patient has been intolerant of CPAP. Assessment & Plan (01/15/2024 10:35 AM EDT): Patient has been intolerant of CPAP. Assessment & Plan (10/15/2023 1:36 PM EDT): Intolerant of cpap TBI (traumatic brain injury) 09/29/202203/2023 Overview (01/16/2025): Years ago, eval neurology yearly She did not wish to further elaborate on this dx. Doesn't agree with it. Followed by neuro yearly- did not want to disclose neurologist she was seeing Vaginal atrophy 09/29/2022 09/29/2022 Hypertension Assessment & Plan (07/29/2024 9:49 AM EDT): Blood pressure is much improved on most recent cocktail. Will follow longitudinally. Will see again in 6 months. Assessment & Plan (05/03/2024 9:51 AM EST): Not taking clonidine. Hosiery Operator gave the patient doxazosin. 2 mg she was unable to tolerate went down to 1. I am going to try to uptitrate back to 2 to see what happens. Resolved Problems Problem Noted Date Diagnosed Date Resolved Date Family history of kidney cancer 11/20/2023 01/09/2024 Hypertensive chronic kidney disease with stage 5 chronic kidney disease or end stage renal disease 10/07/2022 02/19/2023 Assessment & Plan (11/06/2022 2:28 PM EDT): Blood pressure satisfactory Type 2 diabetes mellitus wit h stage 3b chronic kidney disease, without long-term current use of insulin 10/07/2022 03/07/2024 Hypertensive kidney disease with stage 3b chronic kidney disease 09/29/2022 09/29/2022 03/11/2024 Assessment & Plan (01/15/2024 10:35 AM EDT): We will uptitrate clonidine. Assessment & Plan (10/15/2023 1:36 PM EDT): BP is high. We will add clonidine Diaphoresis 09/29/2022 09/29/2022 06/12/2023 Dyspnea 09/29/2022 09/29/2022 06/06/2023 Endometriosis 09/29/2022 09/29/2022 06/12/2023 Fatigue 09/29/2022 09/29/2022 06/06/2023 Postmenopausal bleeding 09/29/2022 09/29/202205/21 Sigmoid diverticulitis 09/29/2022 09/29/202206/12 Tremulousness 09/29/2022 09/29/2022 06/12/2023 Colovaginal fistula 05/28/2021 01/09/20 24 Overview (05/28/2021): Added automatically from request for surgery [id number] Complex renal cyst 05/14/2021 Stage 3b chronic kidney disease 05/14/2021 03/11/2024 Family history of kidney cancer 05/14/2021 09/27/2023 Encounter for screening colonoscopy 03/21/2021 09/29/2022 Overview (03/21/2021): Added automatically from request for surgery [id number] Encounters Date Type Department Care Team Description 01/27/2025 Orders Only [facility] [address] [place] [address] Monica Roy MD 01/18/2025 Refill [facility] DEPARTMENT OF [facility] [place] Dr. Cipriano Fofana [address] [address] Cipriano Fofana MD Type 2 diabetes mellitus with stage 3b chronic kidney disease, with long-term current use of insulin ([facility]); Type 2 diabetes mellitus in patient with obesity (HCC) 01/16/2025 10:30 AM EDT Office Visit [facility] [place] Dr. Cipriano Fofana [address] [address] Mouna Ortega, TIMING INSPECTOR Routine medical exam (Primary Dx); Wellness examination; GERD without esophagitis; Type 2 diabetes mellitus with obesity (HCC); Hypertension secondary to other renal disorders ; Moderate persistent asthma without complication ; Obstructive sleep apnea, adult; Secondary hyperparathyroidism of renal origin ; Benign hypertension with chronic kidney disease, stage IV ([facility]); Complex renal cyst; Elevated uric acid in blood; Generalized anxiety disorder ; Morbid obesity with body mass index (BMI) of 45.0 to 49.9 in adult (HCC); Lichen sclerosus et atrophicus of the vulva; Trouble in sleeping; Type 2 diabetes mellitus with stage 3b chronic kidney disease, with long-term current use of insulin ([facility]); Traumatic brain injury, without loss of consciousness, sequela; Stress incontinence 01/16/2025 Orders Only [facility] [place] Dr. Cipriano Fofana [address] [address] Mouna Ortega, TIMING INSPECTOR Type 2 diabetes mellitus with obesity (HCC); Type 2 diabetes mellitus with stage 3b chronic kidney disease, with long-term current use of insulin (HCC) 01/16/2025 Telephone [facility] [place] [facility]. Cipriano Fofana [address] [address] Cipriano Fofana MD 01/01/2025 Refill [facility] DE[facility] [place] Dr. Cipriano Fofana [address] [facility] [address] [place] [phone] Ruby Walton, TIMING INSPECTOR Type 2 diabetes mellitus with stage 3b chronic kidney disease, with long-term current use of insulin (HCC); Type 2 diabetes mellitus with obesity (HCC) 01/01/2025 Refill [facility] Department Of Heating And [facility]ing Systems Engineer [place] [address] [place] [address] Karen Millard MD Lichen sclerosus et atrophicus of the vulva 12/16/2024 Orders Only [facility] Department of Internal Medicine & Nephrology [place] [address] [facility] [address] [place] [address] PostBang MD Gross hematuria (Primary Dx) 12/09/2024 Telephone [facility] Department of Internal Medicine & Nephrology [place] [address] [facility] [address] [place] [address] Bang Combs MD 12/06/2024 Refill [facility] Department of Internal Medicine & Nephrology [place] [address] [facility] [address] [place] [address] Bang Combs MD Gross hematuria 12/02/2024 12:00 PM EDT Office Visit [facility] Department of Internal Medicine & Nephrology [place] [address] [facility] [address] [place] [address] Bang Combs MD Hypertension secondary to other renal disorders (Primary Dx); Complex renal cyst; Stage 3b chronic kidney disease (HCC); Gross hematuria 12/02/2024 Orders Only [facility] Department of Internal Medicine & Nephrology [place] [address] [place] [address] Bang Combs MD 11/18/2024 9:15 AM EDT Office Visit [facility] [place] [address] [place] [address] Sascha Escobedo MD Complex renal cyst (Primary Dx); Family history of kidney cancer; Stage 3b chronic kidney disease (HCC) 11/18/2024 Travel from Last 3 Months Immunizations Immunization Administration Dates Next Due Covid-19 mRNA Primary Series Vaccine - Moderna 0.5 mL Full Dose 08/15/2020,07/24/2020 Pneumococcal Conjugate 20-Valent 10/07/2022 RSV, Recombinant, Protein Joshi bunit RSV Prefusion F (AREXVY), Adjuvant Recon 0.5 mL PF 09/10/2023 Tdap 09/10/2023 Zoster Vaccine Recombinant (Shingrix) 02/10/2023 ,11/10/2022 Family History Medical History Relation Name Comments Kidney cancer Brother Kidney cancer Sister Relation Name Status Comments Brother Alive Sister Alive Social History Tobacco Use Types Packs/Day Years Used Date Smoking Tobacco: Former Cigarettes Smokeless Tobacco: Never Tobacco Cessation:Counseling Given: Not Answered Comments:quit approx 1979 Couple cig a day [...] file Not on file Not on file Last Filed Vital Signs Vital Sign Reading Time Taken Comments Blood Pressure 128/76 01/16/2025 10:25 AM EDT Pulse 100 01/16/2025 10:25 AM EDT Temperature 36.5 C (97.7 F) 01/16/2025 10:25 AM EDT Respiratory Rate 16 12/26/2022 9:20 AM EDT Oxygen Saturation 98% 01/16/2025 10:25 AM EDT Inhaled Oxygen Concentration - - Weight 116 kg (255 lb) 01/16/2025 10:25 AM EDT Height 157.5 cm (5' 2 ) 01/16/2025 10:25 AM EDT Body Mass Index 46.64 01/16/2025 10:25 AM EDT Plan of Treatment Upcoming Encounters Date Type Department Care Team (Late st Contact Info) Description 02/10/2025 9:15 AM EDT Office Visit [facility] Department of Cardiology [address] [address] Sohan Goncalves MD [address] [address] 03/24/2025 12:00 PM EST Office Visit [facility] Department of Internal Medicine & Nephrology [place] [address] [facility] [address] [place] [address] Bang Combs MD 85 [facility] [address] [place] [address] 07/24/2025 10:00 AM EDT Office Visit [facility] DE[facility] OF [facility] [place] Dr. Cipriano Fofana [address] [phone] Daiana Tello, STEPHANIE [address] [facility] [address] [place] [address] 11/24/2025 9:30 AM EDT Office Visit [facility] [place] [address] [place] [phone] Sascha Escobedo MD [address] [address] 01/22/2026 10:00 AM EDT Office Visit [facility] DEPARTMENT OF INTERNAL MEDICINE [place] Dr. Cipriano Fofana [address] [facility] [address] [place] [phone] Mouna Ortega, TIMING INSPECTOR [address] [facility] [address] [place] [address] Health Maintenance Due Date Last Done Comments Ophthalmology Exam 1970 Lipid Panel 06/17/2024 06/18/2023 COVID-19 Vaccine ( season) 2024 02/09/2021, 08/15/2020, 07/24/2020, Additional history exists Hemoglobin A1C 05/13/2025 11/10/2024, 12/20, 11/13/2023, Additional history exists Creatinine with GFR 11/18/2025 11/18/2024, 11/10/2024, 11/10/2024, Additional history exists Foot Exam 01/16/2026 01/16/2025, 12/20, 07/29/2024, Additional history exists Mammogram 01/17/2026 01/27/2025, 12/21, 01/01/2023, Additional history exists Pap Smear (Ages 21-65) 11/12/2026 11/13/2023, 2020 Colonoscopy 12/26/2029 12/26/2022, 04/05/2021 DTaP/Tdap/Td Vaccines (2 - Td or Tdap) 09/09/2033 09/10/2023 Pneumococcal Vaccines 50+ Completed 10/07/2022 Zoster (Shingles) Vaccine Completed 02/10/2023, HIV Screening Completed 06/18/2023 RSV Vaccine 60 years and older and Patients Completed 09/10/2023 Hepatitis C Virus Screening Completed 12/02/2023 Hepatitis B Vaccines Aged Out No long er eligible based on patient's age to complete this topic Influenza Vaccine Discontinued Procedures Procedure Name Priority Date/Time Associated Diagnosis Comments MG SCREENING DIGITAL BREAST SHAMIKA- BILATERAL Routine 01/27/2025 2:14 PM EDT URINALYSIS WITH REFLEX TO CULTURE Routine 12/02/2024 12:58 PM EDT URINE CULTURE Routine 12/02/2024 12:58 PM EDT POCT URINALYSIS DIPSTICK, AUTOMATED Routine 12/02/2024 12:56 PM EDT Hypertension secondary to other renal disorders Complex renal cyst Stage 3b chronic kidney disease (HCC) Gross hematuria US RENAL-LIMITED Routine 11/25/2024 8:56 AM EDT Complex renal cyst Family history of kidney cancer Stage 3b chronic kidney disease (HCC) CREATININE WITH EGFR Routine 11/18/2024 10:36 AM EDT Complex renal cyst Family history of kidney cancer Stage 3b chronic kidney disease (HCC) POCT URINALYSIS DIPSTICK, AUTOMATED Routine 11/18/2024 9:14 AM EDT Complex renal cyst Family history of kidney cancer Stage 3b chronic kidney disease (HCC) HEMOGLOBIN A1C WITH ESTIMATED AVERAGE GLUCOSE Routine 11/10/2024 9:24 AM EDT Type 2 diabetes mellitus with hyperglycemia, with long-term current use of insulin (HCC) Stage 3b chronic kidney disease (HCC) VITAMIN D, 25-HYDROXY Routine 11/10/2024 9:24 AM EDT Type 2 diabetes mellitus with hyperglycemia, with long-term current use of insulin (HCC) Stage 3b chronic kidney disease (HCC) PTH, INTACT WITH CALCIUM Routine 11/10/2024 9:24 AM EDT Type 2 diabetes mellitus with hyperglycemia, with long-term current use of insulin (HCC) Stage 3b chronic kidney disease (HCC) IRON AND TOTAL IRON BINDING CAPACITY Routine 11/10/2024 9:24 AM EDT Type 2 diabetes mellitus with hyperglycemia, with long-term current use of insulin (HCC) Stage 3b chronic kidney disease (HCC) PROTEIN, TOTAL, RANDOM URINE WITH CREATININE Routine 11/10/2024 9:24 AM EDT Type 2 diabetes mellitus with hyperglycemia, with long-term current use of insulin (HCC) Stage 3b chronic kidney disease (HCC) RENAL FUNCTION PANEL Routine 11/10/2024 9:24 AM EDT Type 2 diabetes mellitus with hyperglycemia, with long-term current use of insulin (HCC) Stage 3b chronic kidney disease (HCC) COMPLETE BLOOD COUNT, WITHOUT DIFFERENTIAL Routine 11/10/2024 9:24 AM EDT Type 2 diabetes mellitus with hyperglycemia, with long-term current use of insulin (HCC) Stage 3b chronic kidney disease (HCC) COMPREHENSIVE METABOLIC PANEL Routine 11/10/2024 9:24 AM EDT Type 2 diabetes mellitus with hyperglycemia, with long-term current use of insulin (HCC) Stage 3b chronic kidney disease (HCC) HEPATITIS C VIRUS (HCV) ANTIBODY Routine 12/02/2023 11:08 AM EDT THINPREP PAP(METAL CUT OFF SAW TENDER) HPV SCR RFX HPV 16,18/45 Routine 11/13/2023 4:01 PM EDT Encounter for gynecological examination with abnormal finding HIV 1/2 AG/AB CMIA REFLEX TO CONFIRMATION Routine 06/18/2023 8:22 AM EST LIPID PANEL WITH NONHDL Routine 06/18/2023 8:22 AM EST from Last 3 Months or Most Recently Relevant to Health Maintenance Results * MG SCREENING DIGITAL BREAST SHAMIKA- [...] for referring your patient to us, Meredith Guy MD [phone] (Electronically Signed - 01/31/2025 09:45) Procedure Note Meredith Guy MD - 01/31/2025 HISTORY: Patient is 64 [...] for referring your patient to us, Meredith Guy MD [phone] (Electronically Signed - 01/31/2025 09:45) us Rad-Self Referred IMG LEGACY PROCEDURES Final Result * (ABNORMAL) Urinalysis with Reflex to Culture (12/02/2024 12:58 PM EDT) Color Light-Yellow YELLOW [facility] Clarity Turbid CLEAR [facility] Specific [place] 1.013 1.005 - 1.035 N/A [facility] pH 5.5 5.0 - 8.0 [facility] Leukocyte Esterase 500 Eduin/uL(A) NEGATIVE Eduin/uL [facility] Comment:BASED ON LABORATORY APPROVED CRITERIA, THIS URINE SPECIMEN WILL BE REFLEXED TO URINE CULTURE. RESULTS WILL BE ADDED IN 48 HOURS. Nitrite negative NEGATIVE [facility] Protein negative NEGATIVE [facility] Glucose normal NEGATIVE [facility] Ketones negative NEGATIVE [facility] Bilirubin negative NEGATIVE [facility] Urobilinogen normal NORMAL mg/dL [facility] Blood 3+(A) NEGATIVE [facility] Red Blood Cell >50(A) 0 - 2 HPF [facility] White Blood Cell >50(A) 0 - 5 HPF [facility] Comment:BASED ON LABORATORY APPROVED CRITERIA, THIS URINE SPECIMEN WILL BE REFLEXED TO URINE CULTURE. RESULTS WILL BE ADDED IN 48 HOURS. WBC Clumps RARE(A) NONE SEEN HPF [facility] Bacteria Few(A) NONE SEEN HPF [facility] Comment:BASED ON LABORATORY APPROVED CRITERIA, THIS URINE SPECIMEN WILL BE REFLEXED TO URINE CULTURE. RESULTS WILL BE ADDED IN 48 HOURS. Squamous Epithelial Cells 0-5 0 - 5 HPF [facility] Reflexive Urine Culture CULTURE INDICATED - RESULTS TO FOLLOW [facility] Comment:CULTURE INDICATED - RESULTS TO FOLLOW 12/02/2024 12:5 8 PM EDT 12/02/2024 4:57 PM EDT us Bang B Post MD URINE ORDERABLES Final Result [facility] [address] [place] [address] * (ABNORMAL) URINE CULTURE (12/02/2024 12:58 PM EDT) Source? : Location Specimen Obtained from Patient cc [facility] Urine Culture Rt Status Final report(A) [facility] UR CULT 1 Escherichia coli(A) [facility] Comment: Cefazolin with an ERIKA <=16 predicts susceptibility to the oral agents cefaclor, cefdinir, cefpodoxime, cefprozil, cefuroxime, cephalexin, and loracarbef when used for therapy of uncomplicated urinary tract infections due to E. coli, Klebsiella pneumoniae, and Proteus mirabilis. Identified by MALDI-TOF mass spectrometry. 10,000-25,000 colony forming units per mL UR CULT SUSCEP Comment [facility] Comment: S = Susceptible; I = Intermediate; R = Resistant P = Positive; N = Negative MICS are expressed in micrograms per mL Antibiotic RSLT#1 RSLT#2 RSLT#3 RSLT#4 Amoxicillin/Clavulanic Acid S Ampicillin S Cefazolin S Cefepime S Cefoxitin S Cefpodoxime S Ceftriaxone S Ciprofloxacin S Ertapenem S Gentamicin S Levofloxacin S Meropenem S Nitrofurantoin S Piperacillin/Tazobactam S Tetracycline S Tobramycin S Trimethoprim/Sulfa S 12/02/2024 12:5 8 PM EDT 12/02/2024 4:57 PM EDT us Bang B Post MD LAB AMB MICRO ORDERABLES Final Result [facility] [address] [place] [address], * (ABNORMAL) POCT Urinalysis Dipstick, Automated (12/02/2024 12:56 PM EDT) Only the most recent of2 resultswithin the time period is included. Source, UA Clean Catch Color, UA Yellow Yellow & Clear, Yellow Clarity, UA Clear Clear Glucose, UA Negative Negative Bilirubin, UA Negative Negative Ketones, UA Negative Negative Spec Grav, UA 1.010 1.005, 1.010, 1.015, 1.020, 1.025 Blood, UA Large (+++)(A) Negative Comment:3+ pH, UA 5.5 5.0, 5.5, 6.0, 6.5, 7.0, 7.5, 8.0 Protein, UA Negative Negative Urobilinogen, UA 0.2 0.2, 1.0 Nitrite, UA Negative Negative Leukocyte Esterase, UA Small (+)(A) Negative Comment:1+ Urine Output, UA 2 cc Lot Number [id number] Head Golf Coach Pass [place] Urine 12/02/2024 12:5 6 PM EDT us Bang Combs MD POINT OF CARE TEST ORDERABLES F inal Result * US Renal-Limited (11/25/2024 8:56 AM EDT) Anatomical Region Laterality Modality Abdomen Ultrasound 11/25/2024 8:30 AM EDT 11/25/2024 8:30 AM EDT Impressions 11/26/2024 8:22 PM EDT Stable appearing of right renal cortical cyst with no new cysts present bilaterally. Electronically signed by: Dirk Lopez MD 11/26/2024 08:22 PM EDT Workstation:[email or web address] Thank you for referring your patient to us, Dirk Lopez MD [phone] (Electronically Signed - 11/26/2024 20:22) Copy: BANG COMBS MD [facility] [place] [facility] [address] [place] [address] PATIENT , Narrative 11/26/2024 8:22 PM EDT EXAMINATION: US RETROPERITONEUM CLINICAL INDICATION: Female, 64 years, Complex renal cyst TECHNIQUE: Real-time ultrasonography of the abdomen was performed. COMPARISON: Comparison made with previous examination(s) dated (US) 17-Nov-2023,(US) 27-Nov-2022,(MR) 27-Feb-2022,(MR) 09-Aug-2021,(CT) 06-May-2021. FINDINGS: RIGHT KIDNEY: Right renal length measurement: 11.6 x 4.1 x 4.8 cm. Normal in echogenicity and size. No calculus, solid mass or hydronephrosis. There is a stable appearing cyst in the interpolar region measuring approximately 4.0 x 4.6 x 3 point centimeters showing no septa or mural nodules. LEFT KIDNEY: Left renal length measurement: 12.0 x 5.8 x 4.9 cm. Normal in echogenicity and size. No calculus, solid mass or hydronephrosis. AORTA AND INFERIOR VENA CAVA: Visualized segments of the aorta, the origins of the common iliac arteries and inferior vena cava are normal. URINARY BLADDER: Normal. ADDITIONAL FINDINGS: None. Procedure Note Dirk Vaz MD - 11/26/2024 EXAMINATION: US RETROPERITONEUM CLINICAL INDICATION: Female, 64 years, Complex renal cyst TECHNIQUE: Real-time ultrasonography of the abdomen was performed. COMPARISON: Comparison made with previous examination(s) dated (US)17-Nov-2023,(US) 27-Nov-2022,(MR) 27-Feb-2022,(MR) 09-Aug-2021,(CT)06-May-2021. FINDINGS: RIGHT KIDNEY: Right renal length measurement: 11.6 x 4.1 x 4.8 cm. Normalin echogenicity and size. No calculus, solid mass or hydronephrosis. Thereis a stable appearing cyst in the interpolar region measuringapproximately 4.0 x 4.6 x 3 point centimeters showing no septa or mural nodules. LEFT KIDNEY: Left renal length measurement: 12.0 x 5.8 x 4.9 cm. Normal inechogenicity and size. No calculus, solid mass or hydronephrosis. AORTA AND INFERIOR VENA CAVA: Visualized segments of the aorta, theorigins of the common iliac arteries and inferior vena cava are normal. URINARY BLADDER: Normal. ADDITIONAL FINDINGS: None. IMPRESSION: Stable appearing of right renal cortical cyst with no new cysts presentbilaterally. Electronically signed by: Dirk Lopez MD 11/26/2024 08:22 PM EDTWorkstation:[id number] Thank you for referring your patient to us, Dirk Lopez MD [phone] (Electronically Signed - 11/26/2024 20:22) Copy: [facility] [address] [address] PATIENT , us Sascha Escobedo MD IM US ORDERABLES Final Res ult * (ABNORMAL) Creatinine with eGFR (11/18/2024 10:36 AM EDT) Creatinine 1.59(H) 0.50 - 1.05 mg/dL [facility] Creatinine w/ eGFR 36(L) > OR = 60 mL/min/1.7 3m2 [facility] Blood Blood specimen / Unknown 11/18/2024 10:36 AM EDT 11/18/2024 10:37 AM EDT Narrative [facility] - 11/19/2024 12:32 AM EDT FASTING:YES FASTING: YES Sascha Escobedo MD LAB BLOOD ORDERABLES Final Result Performing Organization Address [facility] de Phone Number wumo [address] [place] [phone] * PROTEIN, TOTAL, RANDOM URINE, W/CREATININE (11/10/2024 9:24 AM EDT) Creatinine, Urine, Random 179 20 - 275 mg/dL [facility] Protein/Creati nine Ratio, Urine 78 24 - 184 mg/g creat [facility] Protein/Creati nine Ratio 0.078 0.024 - 0.184 mg/mg creat [facility] Protein Urine, Random 14 5 - 24 mg/dL [facility] Urine specimen / Unknown 11/10/2024 9:24 AM EDT 11/10/2024 9:25 AM EDT Narrative [facility] - 11/11/2024 4:02 PM EDT FASTING:YES FASTING: YES Bang Combs MD URINE ORDERABLES Final Result Performing Organization Address [facility] Co de Phone Number wumo [address] [place] [phone] * Iron and Total Iron Binding Capacity (11/10/2024 9:24 AM EDT) Iron 82 45 - 160 mcg/dL [facility] Total Iron Binding Capacity 302 250 - 450 mcg/dL (calc) [facility] Iron Saturation 27 16 - 45 % (calc) [facility] Blood Blood specimen / Unknown 11/10/2024 9:24 AM EDT 11/10/2024 9:25 AM EDT Narrative [facility] - 11/11/2024 4:02 PM EDT FASTING:YES FASTING: YES us Bang B Post MD LAB BLOOD ORDERABLES Final Resu lt Performing Organization Address [facility] de Phone Number [facility] [address] [place] [phone] * (ABNORMAL) Hemoglobin A1C with Estimated Average Glucose (11/10/2024 9:24 AM EDT) [facility] Hemoglobin A1C 6.9(H) <5.7 % [facility] Comment: For someone without known diabetes, a hemoglobin A1c value of 6.5% or greater indicates that they may have diabetes and this should be confirmed with a follow-up test. For someone with known diabetes, a value <7% indicates that their diabetes is well controlled and a value greater than or equal to 7% indicates suboptimal control. A1c targets should be individualized based on duration of diabetes, age, comorbid conditions, and other considerations. Currently, no consensus exists regarding use of hemoglobin A1c for diagnosis of diabetes for children. Estimated Average Glucose (mg/dL) 151 mg/dL [facility] Estimated Average Glucose (mmol/L) 8.4 mmol/L [facility] Blood Blood specimen / Unknown 11/10/2024 9:24 AM EDT 11/10/2024 9:25 AM EDT Narrative [facility] - 11/11/2024 4:02 PM EDT FASTING:YES FASTING: YES us Bang B Post MD LAB BLOOD ORDERABLES Final Resu lt Performing Organization Address [facility] de Phone Number [facility] [address] [place] [phone] * (ABNORMAL) PTH, INTACT WITH CALCIUM (11/10/2024 9:24 AM EDT) [facility] PTH, Intact 108(H) 16 - 77 pg/mL [facility] Comment: Interpretive Guide Intact PTH Calcium ------- Normal Parathyroid Normal Normal Hypoparathyroidism Low or Low Normal Low Hyperparathyroidism Primary Normal or High High Secondary High Normal or Low Tertiary High High Non-Parathyroid Hypercalcemia Low or Low Normal High Calcium 9.2 8.6 - 10.4 mg/dL [facility] Blood Blood specimen / Unknown 11/10/2024 9:24 AM EDT 11/10/2024 9:25 AM EDT Narrative [facility] - 11/11/2024 4:02 PM EDT FASTING:YES FASTING: YES us Bang B Post MD LAB BLOOD ORDERABLES Final Resu lt wumo [address] [place] [phone] * VITAMIN D, 25-HYDROXY (11/10/2024 9:24 AM EDT) Vitamin D,25-Oh,Total, IA 35 30 - 100 ng/mL [facility] Comment: Vitamin D Status 25-OH Vitamin D: Deficiency: <20 ng/mL Insufficiency: 20 - 29 ng/mL Optimal: > or = 30 ng/mL For 25-OH Vitamin D testing on patients on D2-supplementation and patients for whom quantitation of D2 and D3 fractions is required, the QuestAssureD(TM) 25-OH VIT D, (D2,D3), LC/MS/MS is recommended: order code 89752 (patients >2yrs). See Note 1 Note 1 For additional information, please refer to http://education.Wishpot/faq/NOG974 (This link is being provided for informational/ educational purposes only.) Blood Blood specimen / Unknown 11/10/2024 9:24 AM EDT 11/10/2024 9:25 AM EDT Narrative [facility] - 11/11/2024 4:02 PM EDT FASTING:YES FASTING: YES us Bang B Post MD LAB BLOOD ORDERABLES Final Resu lt Performing Organization Address [facility]/ZIP Co de Phone Number [facility] [address] [place] [phone] * COMPLETE BLOOD COUNT, WITHOUT DIFFERENTIAL (11/10/2024 9:24 AM EDT) Pathologist [facility] White Blood Cell Count 6.9 3.8 - 10.8 Thousand/u L [facility] Red Blood Cell Count 4.08 3.80 - 5.10 Million/uL [facility] Hemoglobin 13.3 11.7 - 15.5 g/dL [facility] Hematocrit 39.9 35.0 - 45.0 % [facility] MCV 97.8 80.0 - 100.0 fL [facility] MCH 32.6 27.0 - 33.0 pg [facility] MCHC 33.3 32.0 - 36.0 g/dL [facility] Comment: For adults, a slight decrease in the calculated MCHC value (in the range of 30 to 32 g/dL) is most likely not clinically significant; however, it should be interpreted with caution in correlation with other red cell parameters and the patient's clinical condition. RDW 13.0 11.0 - 15.0 % [facility] Platelet Count 292 140 - 400 Thousand/u L [facility] MPV 9.1 7.5 - 12.5 fL [facility] Blood Blood specimen / Unknown 11/10/2024 9:24 AM EDT 11/10/2024 9:25 AM EDT Narrative [facility] - 11/11/2024 4:02 PM EDT FASTING:YES FASTING: YES us Bang B Post MD LAB BLOOD ORDERABLES Final Resu lt Performing Organization Address [facility] Co de Phone Number wumo [address] [place] [phone] * (ABNORMAL) RENAL FUNCTION PANEL (11/10/2024 9:24 AM EDT) Glucose 201(H) 65 - 99 mg/dL [facility] Comment: Fasting reference interval For someone without known diabetes, a glucose value >125 mg/dL indicates that they may have diabetes and this should be confirmed with a follow-up test. Blood Urea Nitrogen (BUN) 24 7 - 25 mg/dL [facility] Creatinine 1.66(H) 0.50 - 1.05 mg/dL [facility] Creatinine w/ eGFR 34(L) > OR = 60 mL/min/1.7 3m2 [facility] BUN/Creatinine Ratio 14 6 - 22 (calc) [facility] Sodium 137 135 - 146 mmol/L [facility] Potassium 4.3 3.5 - 5.3 mmol/L [facility] Chloride 103 98 - 110 mmol/L [facility] CO2 28 20 - 32 mmol/L [facility] Calcium 9.2 8.6 - 10.4 mg/dL [facility] Phosphorus 4.4 2.5 - 4.5 mg/dL [facility] Albumin 4.0 3.6 - 5.1 g/dL [facility] Blood specimen / Unknown 11/10/2024 9:24 AM EDT 11/10/2024 9:25 AM EDT Narrative [facility] - 11/11/2024 4:02 PM EDT FASTING:YES FASTING: YES us Bang B Post MD LAB BLOOD ORDERABLES Final Resu lt wum[facility] [address] [place] [phone] * (ABNORMAL) Comprehensive Metabolic Panel (11/10/2024 9:24 AM EDT) Glucose 201(H) 65 - 99 mg/dL [facility] Comment: Fasting reference interval For someone without known diabetes, a glucose value >125 mg/dL indicates that they may have diabetes and this should be confirmed with a follow-up test. Blood Urea Nitrogen (BUN) 24 7 - 25 mg/dL [facility] Creatinine 1.66(H) 0.50 - 1.05 mg/dL [facility] Creatinine w/ eGFR 34(L) > OR = 60 mL/min/1. 73m2 [facility] BUN/Creatinine Ratio 14 6 - 22 (calc) [facility] Sodium 137 135 - 146 mmol/L [facility] Potassium 4.3 3.5 - 5.3 mmol/L [facility] Chloride 103 98 - 110 mmol/L [facility] CO2 28 20 - 32 mmol/L [facility] Calcium 9.2 8.6 - 10.4 mg/dL [facility] Protein, Total 6.6 6.1 - 8.1 g/dL [facility] Albumin 4.0 3.6 - 5.1 g/dL [facility] Globulin 2.6 1.9 - 3.7 g/dL (calc) [facility] Albumin/Globulin Ratio 1.5 1.0 - 2.5 (calc) [facility] Bilirubin, Total 0.4 0.2 - 1.2 mg/dL [facility] Alkaline Phosphatase 61 37 - 153 U/L [facility] Aspartate Aminotrans (AST) 17 10 - 35 U/L [facility] Alanine Aminotrans (ALT) 23 6 - 29 U/L [facility] Blood Blood specimen / Unknown 11/10/2024 9:24 AM EDT 11/10/2024 9:25 AM EDT Narrative [facility] - 11/11/2024 4:02 PM EDT FASTING:YES FASTING: YES us Bang Grace Post MD LAB BLOOD ORDERABLES Final Resu lt wum[facility] [address] [place] [phone] * HEPATITIS C VIRUS (HCV) ANTIBODY (12/02/2023 11:08 AM EDT) Hepatitis C Antibody NON-REACT JENNY NON-REACT JENNY [facility] Comment: HCV antibody was non-reactive. There is no laboratory evidence of HCV infection. In most cases, no further action is required. However, if recent HCV exposure is suspected, a test for HCV RNA (test code 91712) is suggested. For additional information please refer to http://[email or web address] Candy.NuHabitat/faq/FDY03g3 (This link is being provided for informational/ educational purposes only.) 12/02/2023 11:0 8 AM EDT 12/02/2023 11:10 AM EDT Xochitl Paredes MD LAB BLOOD ORDERABLES Final Re sult Performing Organization Address [facility] Co de Phone Number wumo [address] [place] [phone] * ThinPrep Pap(Underbaster) HPV Scr Rfx HPV 16,18/45 (11/13/2023 4:01 PM EDT) 11/13/2023 4:01 PM EDT Narrative [facility] - 11/19/2023 12:42 PM EDT To view the final report click the scan hyperlink below. Karen Millard MD LAB AMB PATH/CYTO ORDERABLES F inal Result Performing Organization Address [facility] Co de Phone Number [facility] [address] [place] [address], * Lipid panel with nonHDL (06/18/2023 8:22 AM EST) Pathologist [facility] Cholesterol, Total 142 <200 mg/dL [facility] Cholesterol, HDL 55 > OR = 50 mg/dL [facility] Triglycerides 146 <150 mg/dL [facility] LDL Cholesterol 64 mg/dL (calc) [facility] Comment: Reference range: <100 Desirable range <100 mg/dL for primary prevention; <70 mg/dL for patients with CHD or diabetic patients with > or = 2 CHD risk factors. LDL-C is now calculated using the Vladimir calculation, which is a validated novel method providing better accuracy than the Friedewald equation in the estimation of LDL-C. Odin SS et al. ARMAAN. 2013;310(19): 0230-1019 (http://Missy's Candy.[email or web address]/faq/ARW362) Cholesterol/HDL Ratio 2.6 <5.0 (calc) [facility] Non HDL Chol. (LDL+VLDL) 87 <130 mg/dL (calc) [facility] Comment: For patients with diabetes plus 1 major ASCVD risk factor, treating to a non-HDL-C goal of <100 mg/dL (LDL-C of <70 mg/dL) is considered a therapeutic option. 06/18/2023 8:22 AM EST 06/18/2023 8:23 AM EST Narrative [facility] - 06/19/2023 1:35 AM EST FASTING:YES FASTING: YES us Xochitl Paredes MD LAB BLOOD ORDERABLES Final Re sult wumo [address] [place] [phone] * HIV 1/2 Ag/Ab CMIA Reflex to Confirmation (06/18/2023 8:22 AM EST) HIV Ag/Ab, 4th Gen NON-REACT JENNY NON-REACT JENNY [facility] Comment: HIV-1 antigen and HIV-1/HIV-2 antibodies were not detected. There is no laboratory evidence of HIV infection. PLEASE NOTE: This information has been disclosed to you from records whose confidentiality may be protected by state law. If your state requires such protection, then the state law prohibits you from making any further disclosure of the information without the specific written consent of the person to whom it pertains, or as otherwise permitted by law. A general authorization for the release of medical or other information is NOT sufficient for this purpose. For additional information please refer to [email or web address] Candy.NuHabitat/faq/XLY481 (This link is being provided for informational/ educational purposes only.) The performance of this assay has not been clinically validated in patients less than 2 years old. 06/18/2023 8:22 AM EST 06/18/2023 8:23 AM EST Narrative [facility] - 06/19/2023 1:35 AM EST FASTING:YES FASTING: YES Xochitl Paredes MD LAB BLOOD ORDERABLES Final Re sult [facility] [address] [place] [phone] from Last 3 Months or Most Recently Relevant to Health Maintenance Insurance MEDICARE PART A & B [facility] MEDICARE PART A & B Member Subscriber Plan / Payer (Ef fective 1991-Present) Name:Anette Nancy A Member ID:[id number] Relation to Subscriber:Self Name:Nancy Cheema Subscriber ID:[id number] Payer ID:[id number] Group ID:Not on file Type:Not on file Address: [address] MEDICARE PART A & B Member Subscriber Plan / Payer (Ef fective 1991-Present) Name:Nancy Cheema Member ID:[id number] Relation to Subscriber:Self Name:Nancy Cheema Subscriber ID:[id number] Payer ID:[id number] Group ID:Not on file Type:Not on file Address: [address] Advance Directives * Full Code (Latest Code Status on File) Date Activated Date Inactivated Comments 06/20/2021 3:53 PM 02/25/2022 10:33 PM * Full Code Date Activated Date Inactivated Comments 06/20/2021 12:23 PM 06/20/2021 3:53 PM Care Teams Sas Sql Developer Relationship Specialty Start Date End Date Xochitl Paredes MD [address] [place] [address] [place] [address] PCP - [place] Medicare Patients 07/20/23 Cipriano Fofana MD [address] [facility] [address] [place] [address] PCP - General Internal Medicine 06/27/24 Sascha Escobedo MD 85 [facility] [address] [place] [address] Physician Urology 12/11/23 Bang Combs MD 85 [facility] [address] [place] [address] Nephrology 01/16/25 Sohan Goncalves MD [address] [facility] [address] [place] [address] Cardiovascular Disease 01/16/25 Andrew Wang MD 146 [facility] [address] [place] [address] Otolaryngology 01/16/25
== END 2025-01-31 09:45 | disposition home or self-care (01) ==
LOC: HO.HSM 09:17
PROVIDERS: PCP Internal Medicine; Visit Provider Registered Nurse
DX: G43.709 Chronic migraine without aura, not intractable, without status migrainosus (principal); Z87.820 Personal history of traumatic brain injury
CPT/HCPCS: 99213

== ENCOUNTER → 2025-01-31 09:16 | Outpatient (BNVA) | payer MEDICARE, OTHER, SELFPAY | PROVIDERS: PCP Internal Medicine; Visit Provider Registered Nurse | DX: G43.709 Chronic migraine without aura, not intractable, without status migrainosus (principal); Z87.820 Personal history of traumatic brain injury | CPT/HCPCS: 99212 ==